=== PATIENT | female | born 1945 | race Caucasian/White ===

== ENCOUNTER 2016-06-12 06:09 | Day surgery (SDC) | payer MEDICARE ==
[2016-06-05 16:30] LABS: HEMATOCRIT 44.7 % (36.0-48.0); HEMOGLOBIN 15.1 g/dL (12.0-16.0)
[2016-06-05 16:37] LABS: BUN (BLOOD UREA NITROGEN) 8 MG/DL (6-23); CALCIUM, SERUM 9.6 MG/DL (8.5-10.4); CHLORIDE, SERUM 103 MMOL/L (96-112); CO2 (CARBON DIOXIDE) 29 MMOL/L (24-34); CREATININE 0.62 MG/DL (0.55-1.02); GFR AFRICAN AMERICAN 105 ML/MIN (>=60); GFR NON AFRICAN AMERICAN 91 ML/MIN (>=60); GLUCOSE, SERUM 99 MG/DL (60-99); POTASSIUM, SERUM 4.5 MMOL/L (3.5-5.3); SODIUM, SERUM 140 MMOL/L (135-148)
[2016-06-05 17:04] LABS: ASCORBIC ACID (UR NOT ORDER) 40 (NEG); BILIRUBIN, URINE NEGATIVE (NEG); KETONE, URINE NEGATIVE (NEG)
--- NOTE | ~2016-06-12 | OP ---
Record Of [facility] [address] [place]. [address] NAME: EMERY FLETCHER : 43 STATUS : [facility]#: [id number] AGE: 70 ADM/REG DATE : 06/12/16 MR#: [id number] REPORT SERV DATE: 06/12/16 DICTATED BY: BIRD RODRÍGUEZ JR. DATE: 06/12/16 REPORT STATUS : Draft TRANSCRIBED BY: MODReyna DATE: 06/12/16 DATE OF PROCEDURE: 06/12/2016 SURGEON: Bird Rodríguez M.D. PREOPERATIVE DIAGNOSIS: Chronic cystitis and dysuria along with urgency and urge incontinence and urethral stenosis. POSTOPERATIVE DIAGNOSIS: Chronic cystitis and dysuria along with urgency and urge incontinence and urethral stenosis. PROCEDURE PERFORMED: Cystoscopy, urethral dilation. COMPLICATIONS: None. CONSULTATIONS: None. ANESTHESIA: General with laryngeal mask airway. SPECIMENS: None. DRAINS: None. ESTIMATED BLOOD LOSS: None. INDICATION: Ms. Fletcher is a 70-year-old female, who I saw in the office with recurrent symptoms of cystitis and urgency and urge incontinence. She was found to have a urethral stenosis at the time of her cystoscopy. She did respond to suppressive therapy with trimethoprim and has improved from a symptom standpoint. She comes today for urethral dilation and to complete her workup for chronic cystitis with cystoscopy. PROCEDURE IN DETAIL: After the patient was identified and proper informed consent was obtained, she was taken to the operating room. General anesthesia was performed without complication using a laryngeal mask airway. She was then prepped and draped in a normal sterile fashion in the lithotomy position. Urethral dilation was performed from [address] all the way to 24[place] without great difficulties. There was no trauma to the urethra from this. Cystoscopically she had hyperemic urethra, likely from the dilation. Her bladder mucosa was examined. I did not find any tumors, diverticula, or stones, but she did have several edematous blebs in the bladder consistent with chronic cystitis. Both ureteral orifices were in the normal position and normal size. The bladder was drained. The patient was awakened in the operating room and transferred to the postanesthesia care in stable condition. I will see her back in six weeks. She will continue her current therapy and we will see how she is doing at that time. Record Of Operation [facility] [address] [place]. [address] NAME: EMERY FLETCHER : 43 STATUS : [facility]#: [id number] AGE: 70 ADM/REG DATE : 06/12/16 MR#: [id number] REPORT SERV DATE: 06/12/16 DICTATED BY: BIRD RODRÍGUEZ JR. DATE: 06/12/16 REPORT STATUS : Draft TRANSCRIBED BY: LEAH DATE: 06/12/16 EDDIE/LEAH Bird Rodríguez Jr., M.D. / [id number] CC: Jessica Fuentes Jr., M.D.
[~2016-06-12 06:09] MED LIST: AMPI500 PO; ASAB PO; COZAAR100 MG PO; CYMBALTA60 PO; DEPAKOT500 PO; FLEX PO; JANUVIA100 MG PO; LEVOTHYROXIN112 MCG PO; NORV10 PO; PRAVACHOL40 MG PO; PRILOSEC40 MG PO; PROAIR HFA INH; PROLOP100 PO; REQUIP1 PO; SINGULAIR1 PO; SYMBICORT 160/41 INH INH; ULTRAM50 PO; ZANAFLEX 4 MG TA4 MG PO; ZYRTEC ALLGY10 MG PO
== END 2016-06-12 11:28 | disposition home or self-care (01) ==
LOC: SDC 06:09
PROVIDERS: Urology
PROC: 0T7D8ZZ Dilation of Urethra, Via Natural or Artificial Opening Endoscopic (ICD-10-PCS; principal; 2016-06-12 07:45)
DX: N35.9 Urethral stricture, unspecified (principal); N30.20 Other chronic cystitis without hematuria; E66.01 Morbid (severe) obesity due to excess calories; G47.33 Obstructive sleep apnea (adult) (pediatric); J45.909 Unspecified asthma, uncomplicated; K21.9 Gastro-esophageal reflux disease without esophagitis; E03.9 Hypothyroidism, unspecified; G43.909 Migraine, unspecified, not intractable, without status migrainosus; E11.9 Type 2 diabetes mellitus without complications; F31.9 Bipolar disorder, unspecified; Z88.2 Allergy status to sulfonamides; Z86.73 Personal history of transient ischemic attack (TIA), and cerebral infarction without residual deficits; Z88.5 Allergy status to narcotic agent
CPT/HCPCS: 36415; 80048; 81001; 82962; 85014; 85018; 87086; 93005; A9270-GY; J2250; J2405; J3010